=== PATIENT | male | born 1970 | race African-American/Black ===

== ENCOUNTER → 2018-06-25 | Outpatient (CLI) | payer BC ==
--- NOTE | 2018-06-25 15:45 | RAD ---
Right lower extremity venous duplex study 06/25/2018 3:41 PM Clinical History: RT CALF PAIN Technique: Using a combination of real time ultrasound imaging and color-flow and pulse Doppler imaging techniques, including spectral analysis, graded compression and augmentation, duplex evaluation of the deep venous system of the right lower extremity was performed. Multiple images were obtained. Findings: There is no sonographic evidence of deep venous thrombosis involving the visualized deep venous structures of the right lower extremity Impression: No evidence of deep venous thrombosis involving the right lower extremity Electronically signed by: Carlo Interiano MD (06/25/2018 3:42 PM) [id number]
== END | disposition home or self-care (01) ==
LOC: US 14:13
PROVIDERS: ATTEND Family Medicine
DX: M79.661 Pain in right lower leg (principal)
CPT/HCPCS: 93971